=== PATIENT | male | born 1945 | race African-American/Black ===

== ENCOUNTER 2022-01-10 10:42 | Inpatient (IN) ==
[2022-01-10] MEDS ORDERED: Fluticasone Propionate Nasal 50 MCG/SPRAY BOTTLE NS PRN (15:28)
[2022-01-10] MEDS: Primidone 50 MG TABLET PO SCH (18:44)
[2022-01-10] MEDS: Propranolol LA (24 HR) 60 MG CAP.SA.24H PO SCH (18:44)
[2022-01-10] MEDS: Ascorbic Acid 500 MG TABLET PO SCH (21:02)
[2022-01-10] MEDS: Multivit/Ca/Min/Fe/FA 1 TAB TABLET PO SCH (21:02)
[2022-01-10] MEDS: CarBAMazepine XR (12 hr) 100 MG TAB PO SCH (21:02)
[2022-01-11 04:36] LABS: Basophils % 0.3 %; Eosinophils # 0.3 K/mcL (0.0-0.6); Eosinophils % 9.5 %; Hematocrit 31.7 % (37.5-50.1); Hemoglobin 10.4 g/dL (12.9-16.9); Immature Granulocytes % 0.6 % (0-4); Lymphocytes # 0.5 K/mcL (0.6-4.6); Lymphocytes % 15.3 %; Mean Corpuscular HGB Conc 32.8 g/dL (31.6-35.5); Mean Corpuscular Hemoglobin 31.1 pg (28.0-33.3); Mean Corpuscular Volume 94.9 fL (83.0-100.0); Mean Platelet Volume 10.1 fL (9.4-12.4); Monocytes # 0.4 K/mcL (0.0-1.3); Monocytes % 10.7 %; Neutrophils # 2.2 K/mcL (1.6-8.9); Platelet Count 147 K/mcL (140-400); Red Blood Count 3.34 M/mcL (4.19-5.50); Red Cell Distribution Width 14.3 % (11.5-14.5); Segmented Neutrophils % 63.6 %; White Blood Count 3.5 K/mcL (4.3-11.1)
[2022-01-11 04:50] LABS: Calcium 9.8 mg/dL (8.6-10.3); Potassium 3.5 mEq/L (3.5-5.1)
[2022-01-11] MEDS: *HR* Enoxaparin 40 MG/0.4 ML SYRINGE SQ SCH (06:54)
[2022-01-11] MEDS: CarBAMazepine XR (12 hr) 100 MG TAB PO SCH ×2 (09:32→22:08)
[2022-01-11] MEDS: Ascorbic Acid 500 MG TABLET PO SCH ×2 (09:32→22:09)
[2022-01-11] MEDS: Lisinopril-HCTZ 20-12.5mg TABLET PO SCH (09:32)
[2022-01-11] MEDS: *HR* SitaGLIPtin 100 MG TABLET PO SCH (09:33)
[2022-01-11] MEDS: allopurinoL 100 MG TABLET PO SCH (09:33)
[2022-01-11] MEDS: Cholecalciferol (D-3) 1,000 UNIT (25MCG) TABLET PO SCH (09:33)
[2022-01-11] MEDS: Cyanocobalamin (B-12) 1,000 MCG TABLET PO SCH (09:33)
[2022-01-11] MEDS: Aspirin Enteric Coated 81 MG Tablet PO SCH (09:33)
[2022-01-11] MEDS: Multivit/Ca/Min/Fe/FA 1 TAB TABLET PO SCH ×2 (09:35→22:09)
[2022-01-11] MEDS: Acetaminophen 325 MG TABLET PO PRN ×2 (09:43→22:08)
[2022-01-11] MEDS: Ammonium Lactate 30 APPL/225 GM BOTTLE TP SCH ×3 (09:43→22:11)
[2022-01-11] MEDS: Propranolol LA (24 HR) 60 MG CAP.SA.24H PO SCH (16:14)
[2022-01-11] MEDS: Primidone 50 MG TABLET PO SCH (16:14)
[2022-01-12] MEDS: *HR* Enoxaparin 40 MG/0.4 ML SYRINGE SQ SCH (05:21)
[2022-01-12 06:01] LABS: Hematocrit 32.3 % (37.5-50.1); Hemoglobin 10.7 g/dL (12.9-16.9); Mean Corpuscular HGB Conc 33.1 g/dL (31.6-35.5); Mean Corpuscular Hemoglobin 31.4 pg (28.0-33.3); Mean Corpuscular Volume 94.7 fL (83.0-100.0); Mean Platelet Volume 9.9 fL (9.4-12.4); Platelet Count 154 K/mcL (140-400); Red Blood Count 3.41 M/mcL (4.19-5.50); Red Cell Distribution Width 14.4 % (11.5-14.5); White Blood Count 4.4 K/mcL (4.3-11.1)
[2022-01-12 06:19] LABS: Albumin 3.5 g/dL (3.5-5.7); Albumin/Globulin Ratio 1.2 (1.1-2.2); Bilirubin,Total 0.3 mg/dL (0.3-1.0); Calcium 9.5 mg/dL (8.6-10.3); Magnesium 1.7 mg/dL (1.6-2.6); Potassium 3.6 mEq/L (3.5-5.1); Total Protein 6.5 g/dL (6.4-8.9)
[2022-01-12] MEDS: Acetaminophen 325 MG TABLET PO PRN ×2 (06:49→20:29)
[2022-01-12] MEDS: Ammonium Lactate 30 APPL/225 GM BOTTLE TP SCH ×3 (08:17→20:32)
[2022-01-12] MEDS: Aspirin Enteric Coated 81 MG Tablet PO SCH (08:22)
[2022-01-12] MEDS: allopurinoL 100 MG TABLET PO SCH (08:22)
[2022-01-12] MEDS: Furosemide 40 MG TABLET PO SCH (08:22)
[2022-01-12] MEDS: *HR* SitaGLIPtin 100 MG TABLET PO SCH (08:22)
[2022-01-12] MEDS: CarBAMazepine XR (12 hr) 100 MG TAB PO SCH ×2 (08:22→20:30)
[2022-01-12] MEDS: Cyanocobalamin (B-12) 1,000 MCG TABLET PO SCH (08:22)
[2022-01-12] MEDS: Multivit/Ca/Min/Fe/FA 1 TAB TABLET PO SCH ×2 (08:22→20:29)
[2022-01-12] MEDS: Lisinopril-HCTZ 20-12.5mg TABLET PO SCH (08:23)
[2022-01-12] MEDS: Ascorbic Acid 500 MG TABLET PO SCH ×2 (08:23→20:29)
[2022-01-12] MEDS: Cholecalciferol (D-3) 1,000 UNIT (25MCG) TABLET PO SCH (08:23)
[2022-01-12] MEDS: Semaglutide [Ozempic] 1 MG/0.75 ML Pen.Injctr SUBQ SCH (08:23)
[2022-01-12] MEDS: Propranolol LA (24 HR) 60 MG CAP.SA.24H PO SCH (16:49)
[2022-01-12] MEDS: *HR* HYDROcodone/Acet 5/325 mg TABLET PO PRN (16:49)
[2022-01-12] MEDS: Primidone 50 MG TABLET PO SCH (16:49)
[2022-01-12] MEDS ORDERED: Ondansetron ODT 4 MG TAB.RAPDIS SL PRN (18:19)
[2022-01-13] MEDS: *HR* Enoxaparin 40 MG/0.4 ML SYRINGE SQ SCH (05:35)
[2022-01-13] MEDS: CarBAMazepine XR (12 hr) 100 MG TAB PO SCH ×2 (08:17→21:16)
[2022-01-13] MEDS: Ammonium Lactate 30 APPL/225 GM BOTTLE TP SCH ×3 (08:17→21:18)
[2022-01-13] MEDS: allopurinoL 100 MG TABLET PO SCH (08:18)
[2022-01-13] MEDS: *HR* SitaGLIPtin 100 MG TABLET PO SCH (08:18)
[2022-01-13] MEDS: Cholecalciferol (D-3) 1,000 UNIT (25MCG) TABLET PO SCH (08:18)
[2022-01-13] MEDS: Cyanocobalamin (B-12) 1,000 MCG TABLET PO SCH (08:18)
[2022-01-13] MEDS: Ascorbic Acid 500 MG TABLET PO SCH ×2 (08:18→21:15)
[2022-01-13] MEDS: Multivit/Ca/Min/Fe/FA 1 TAB TABLET PO SCH ×2 (08:18→21:16)
[2022-01-13] MEDS: *HR* HYDROcodone/Acet 5/325 mg TABLET PO PRN ×2 (08:18→15:52)
[2022-01-13] MEDS: Lisinopril-HCTZ 20-12.5mg TABLET PO SCH (08:18)
[2022-01-13] MEDS: Aspirin Enteric Coated 81 MG Tablet PO SCH (08:18)
[2022-01-13] MEDS: Propranolol LA (24 HR) 60 MG CAP.SA.24H PO SCH (15:52)
[2022-01-13] MEDS: Primidone 50 MG TABLET PO SCH (15:52)
[2022-01-13] MEDS: Acetaminophen 325 MG TABLET PO PRN (21:16)
[2022-01-14] MEDS: *HR* Enoxaparin 40 MG/0.4 ML SYRINGE SQ SCH (05:14)
[2022-01-14] MEDS: Acetaminophen 325 MG TABLET PO PRN ×2 (05:14→20:22)
[2022-01-14] MEDS: Lisinopril-HCTZ 20-12.5mg TABLET PO SCH (09:27)
[2022-01-14] MEDS: *HR* HYDROcodone/Acet 5/325 mg TABLET PO PRN ×2 (09:27→16:23)
[2022-01-14] MEDS: *HR* SitaGLIPtin 100 MG TABLET PO SCH (09:27)
[2022-01-14] MEDS: CarBAMazepine XR (12 hr) 100 MG TAB PO SCH ×2 (09:27→20:22)
[2022-01-14] MEDS: Cyanocobalamin (B-12) 1,000 MCG TABLET PO SCH (09:27)
[2022-01-14] MEDS: Aspirin Enteric Coated 81 MG Tablet PO SCH (09:27)
[2022-01-14] MEDS: Ammonium Lactate 30 APPL/225 GM BOTTLE TP SCH ×3 (09:28→20:21)
[2022-01-14] MEDS: Ascorbic Acid 500 MG TABLET PO SCH ×2 (09:28→20:22)
[2022-01-14] MEDS: Multivit/Ca/Min/Fe/FA 1 TAB TABLET PO SCH ×2 (09:28→20:22)
[2022-01-14] MEDS: Cholecalciferol (D-3) 1,000 UNIT (25MCG) TABLET PO SCH (09:28)
[2022-01-14] MEDS: allopurinoL 100 MG TABLET PO SCH (09:28)
[2022-01-14] MEDS: Furosemide 40 MG TABLET PO SCH (09:28)
[2022-01-14] MEDS: Propranolol LA (24 HR) 60 MG CAP.SA.24H PO SCH (16:23)
[2022-01-14] MEDS: Primidone 50 MG TABLET PO SCH (16:23)
[2022-01-15] MEDS: *HR* Enoxaparin 40 MG/0.4 ML SYRINGE SQ SCH (04:48)
[2022-01-15 05:40] LABS: Hematocrit 32.6 % (37.5-50.1); Hemoglobin 10.8 g/dL (12.9-16.9); Mean Corpuscular HGB Conc 33.1 g/dL (31.6-35.5); Mean Corpuscular Hemoglobin 31.9 pg (28.0-33.3); Mean Corpuscular Volume 96.2 fL (83.0-100.0); Mean Platelet Volume 10.1 fL (9.4-12.4); Platelet Count 147 K/mcL (140-400); Red Blood Count 3.39 M/mcL (4.19-5.50); Red Cell Distribution Width 14.3 % (11.5-14.5); White Blood Count 4.5 K/mcL (4.3-11.1)
[2022-01-15 05:57] LABS: Magnesium 1.8 mg/dL (1.6-2.6); Potassium 4.1 mEq/L (3.5-5.1)
[2022-01-15] MEDS: Lisinopril-HCTZ 20-12.5mg TABLET PO SCH (07:50)
[2022-01-15] MEDS: CarBAMazepine XR (12 hr) 100 MG TAB PO SCH ×2 (07:50→20:01)
[2022-01-15] MEDS: Cyanocobalamin (B-12) 1,000 MCG TABLET PO SCH (07:51)
[2022-01-15] MEDS: Ascorbic Acid 500 MG TABLET PO SCH ×2 (07:51→20:01)
[2022-01-15] MEDS: Cholecalciferol (D-3) 1,000 UNIT (25MCG) TABLET PO SCH (07:51)
[2022-01-15] MEDS: *HR* HYDROcodone/Acet 5/325 mg TABLET PO PRN ×2 (07:51→18:04)
[2022-01-15] MEDS: allopurinoL 100 MG TABLET PO SCH (07:51)
[2022-01-15] MEDS: Multivit/Ca/Min/Fe/FA 1 TAB TABLET PO SCH ×2 (07:51→20:01)
[2022-01-15] MEDS: *HR* SitaGLIPtin 100 MG TABLET PO SCH (07:52)
[2022-01-15] MEDS: Aspirin Enteric Coated 81 MG Tablet PO SCH (07:52)
[2022-01-15] MEDS: Ammonium Lactate 30 APPL/225 GM BOTTLE TP SCH ×3 (09:52→20:01)
[2022-01-15] MEDS: Propranolol LA (24 HR) 60 MG CAP.SA.24H PO SCH (18:04)
[2022-01-15] MEDS: Primidone 50 MG TABLET PO SCH (18:04)
[2022-01-15] MEDS: Acetaminophen 325 MG TABLET PO PRN (20:01)
[2022-01-16] MEDS: *HR* Enoxaparin 40 MG/0.4 ML SYRINGE SQ SCH (04:42)
[2022-01-16] MEDS: *HR* SitaGLIPtin 100 MG TABLET PO SCH (09:51)
[2022-01-16] MEDS: Aspirin Enteric Coated 81 MG Tablet PO SCH (09:51)
[2022-01-16] MEDS: Cholecalciferol (D-3) 1,000 UNIT (25MCG) TABLET PO SCH (09:51)
[2022-01-16] MEDS: lisinopriL 20 MG TABLET PO SCH (09:51)
[2022-01-16] MEDS: Ascorbic Acid 500 MG TABLET PO SCH ×2 (09:51→20:41)
[2022-01-16] MEDS: *HR* HYDROcodone/Acet 5/325 mg TABLET PO PRN ×2 (09:51→20:41)
[2022-01-16] MEDS: allopurinoL 100 MG TABLET PO SCH (09:51)
[2022-01-16] MEDS: CarBAMazepine XR (12 hr) 100 MG TAB PO SCH ×2 (09:51→20:41)
[2022-01-16] MEDS: Multivit/Ca/Min/Fe/FA 1 TAB TABLET PO SCH ×2 (09:52→20:41)
[2022-01-16] MEDS: Ammonium Lactate 30 APPL/225 GM BOTTLE TP SCH ×3 (09:52→20:41)
[2022-01-16] MEDS: Cyanocobalamin (B-12) 1,000 MCG TABLET PO SCH (09:52)
[2022-01-16] MEDS ORDERED: Dextrose Gel 15 GM/37.5 ML TUBE PO PRN ×2 (12:14)
[2022-01-16] MEDS ORDERED: D5% in Water 1,000 ML IVC PRN (12:14)
[2022-01-16] MEDS ORDERED: *HR* Dextrose 50 % in Water (Syg) 50 ML SYRINGE IVP PRN (12:14)
[2022-01-16] MEDS: Propranolol LA (24 HR) 60 MG CAP.SA.24H PO SCH (18:25)
[2022-01-16] MEDS: Primidone 50 MG TABLET PO SCH (18:25)
[2022-01-16] MEDS: Insulin LISPRO 300 UNITS/3 ML VIAL SUBQ SCH ×2 (18:25→20:42)
[2022-01-17] MEDS: *HR* Enoxaparin 40 MG/0.4 ML SYRINGE SQ SCH (05:15)
[2022-01-17] MEDS: Insulin LISPRO 300 UNITS/3 ML VIAL SUBQ SCH ×4 (08:37→20:04)
[2022-01-17] MEDS: Ammonium Lactate 30 APPL/225 GM BOTTLE TP SCH ×3 (08:37→20:06)
[2022-01-17] MEDS: Multivit/Ca/Min/Fe/FA 1 TAB TABLET PO SCH ×2 (08:38→20:06)
[2022-01-17] MEDS: Aspirin Enteric Coated 81 MG Tablet PO SCH (08:38)
[2022-01-17] MEDS: allopurinoL 100 MG TABLET PO SCH (08:38)
[2022-01-17] MEDS: Ascorbic Acid 500 MG TABLET PO SCH ×2 (08:38→20:06)
[2022-01-17] MEDS: Cholecalciferol (D-3) 1,000 UNIT (25MCG) TABLET PO SCH (08:38)
[2022-01-17] MEDS: Cyanocobalamin (B-12) 1,000 MCG TABLET PO SCH (08:38)
[2022-01-17] MEDS: lisinopriL 20 MG TABLET PO SCH (08:38)
[2022-01-17] MEDS: *HR* SitaGLIPtin 100 MG TABLET PO SCH (08:38)
[2022-01-17] MEDS: CarBAMazepine XR (12 hr) 100 MG TAB PO SCH ×2 (08:38→20:05)
[2022-01-17 10:50] LABS: Estimated Average Glucose 131 mg/dl; Hemoglobin A1C 6.2 %
[2022-01-17] MEDS: Primidone 50 MG TABLET PO SCH (17:10)
[2022-01-17] MEDS: Propranolol LA (24 HR) 60 MG CAP.SA.24H PO SCH (17:10)
[2022-01-18] MEDS: *HR* Enoxaparin 40 MG/0.4 ML SYRINGE SQ SCH (05:44)
[2022-01-18 06:20] LABS: Hematocrit 32.7 % (37.5-50.1); Hemoglobin 10.6 g/dL (12.9-16.9); Mean Corpuscular HGB Conc 32.4 g/dL (31.6-35.5); Mean Corpuscular Volume 95.6 fL (83.0-100.0); Mean Platelet Volume 9.8 fL (9.4-12.4); Platelet Count 134 K/mcL (140-400); Red Blood Count 3.42 M/mcL (4.19-5.50); Red Cell Distribution Width 14.4 % (11.5-14.5); White Blood Count 3.3 K/mcL (4.3-11.1)
[2022-01-18 06:32] LABS: Calcium 9.4 mg/dL (8.6-10.3); Magnesium 1.9 mg/dL (1.6-2.6); Potassium 4.3 mEq/L (3.5-5.1)
[2022-01-18] MEDS: allopurinoL 100 MG TABLET PO SCH (07:59)
[2022-01-18] MEDS: Cyanocobalamin (B-12) 1,000 MCG TABLET PO SCH (08:00)
[2022-01-18] MEDS: Cholecalciferol (D-3) 1,000 UNIT (25MCG) TABLET PO SCH (08:00)
[2022-01-18] MEDS: Ascorbic Acid 500 MG TABLET PO SCH ×2 (08:00→20:39)
[2022-01-18] MEDS: Aspirin Enteric Coated 81 MG Tablet PO SCH (08:00)
[2022-01-18] MEDS: Multivit/Ca/Min/Fe/FA 1 TAB TABLET PO SCH ×2 (08:00→20:39)
[2022-01-18] MEDS: *HR* SitaGLIPtin 100 MG TABLET PO SCH (08:01)
[2022-01-18] MEDS: Insulin LISPRO 300 UNITS/3 ML VIAL SUBQ SCH ×4 (08:01→20:40)
[2022-01-18] MEDS: Ammonium Lactate 30 APPL/225 GM BOTTLE TP SCH ×3 (08:01→20:40)
[2022-01-18] MEDS: lisinopriL 20 MG TABLET PO SCH (08:01)
[2022-01-18] MEDS: CarBAMazepine XR (12 hr) 100 MG TAB PO SCH ×2 (08:01→20:39)
[2022-01-18] MEDS: Propranolol LA (24 HR) 60 MG CAP.SA.24H PO SCH (18:06)
[2022-01-18] MEDS: Primidone 50 MG TABLET PO SCH (18:06)
[2022-01-18] MEDS: Acetaminophen 325 MG TABLET PO PRN (20:39)
[2022-01-19] MEDS: *HR* Enoxaparin 40 MG/0.4 ML SYRINGE SQ SCH (05:30)
[2022-01-19] MEDS: Cyanocobalamin (B-12) 1,000 MCG TABLET PO SCH (08:30)
[2022-01-19] MEDS: Multivit/Ca/Min/Fe/FA 1 TAB TABLET PO SCH ×2 (08:31→19:45)
[2022-01-19] MEDS: Aspirin Enteric Coated 81 MG Tablet PO SCH (08:31)
[2022-01-19] MEDS: Semaglutide [Ozempic] 1 MG/0.75 ML Pen.Injctr SUBQ SCH (08:31)
[2022-01-19] MEDS: lisinopriL 20 MG TABLET PO SCH (08:31)
[2022-01-19] MEDS: Ascorbic Acid 500 MG TABLET PO SCH ×2 (08:31→19:45)
[2022-01-19] MEDS: CarBAMazepine XR (12 hr) 100 MG TAB PO SCH ×2 (08:31→19:45)
[2022-01-19] MEDS: Cholecalciferol (D-3) 1,000 UNIT (25MCG) TABLET PO SCH (08:31)
[2022-01-19] MEDS: *HR* SitaGLIPtin 100 MG TABLET PO SCH (08:31)
[2022-01-19] MEDS: allopurinoL 100 MG TABLET PO SCH (08:31)
[2022-01-19] MEDS: Ammonium Lactate 30 APPL/225 GM BOTTLE TP SCH ×3 (08:32→19:47)
[2022-01-19] MEDS: Insulin LISPRO 300 UNITS/3 ML VIAL SUBQ SCH ×4 (08:32→19:47)
[2022-01-19] MEDS: Propranolol LA (24 HR) 60 MG CAP.SA.24H PO SCH (17:36)
[2022-01-19] MEDS: Primidone 50 MG TABLET PO SCH (17:36)
[2022-01-19] MEDS: Acetaminophen 325 MG TABLET PO PRN (19:46)
[2022-01-20] MEDS: *HR* Enoxaparin 40 MG/0.4 ML SYRINGE SQ SCH (05:45)
[2022-01-20] MEDS: Insulin LISPRO 300 UNITS/3 ML VIAL SUBQ SCH ×4 (08:08→20:32)
[2022-01-20] MEDS: allopurinoL 100 MG TABLET PO SCH (08:09)
[2022-01-20] MEDS: Cyanocobalamin (B-12) 1,000 MCG TABLET PO SCH (08:09)
[2022-01-20] MEDS: amLODIPine 5 MG TABLET PO SCH (08:09)
[2022-01-20] MEDS: CarBAMazepine XR (12 hr) 100 MG TAB PO SCH ×2 (08:09→20:32)
[2022-01-20] MEDS: Furosemide 40 MG TABLET PO SCH (08:09)
[2022-01-20] MEDS: Aspirin Enteric Coated 81 MG Tablet PO SCH (08:09)
[2022-01-20] MEDS: Cholecalciferol (D-3) 1,000 UNIT (25MCG) TABLET PO SCH (08:09)
[2022-01-20] MEDS: Ascorbic Acid 500 MG TABLET PO SCH ×2 (08:09→20:32)
[2022-01-20] MEDS: *HR* SitaGLIPtin 100 MG TABLET PO SCH (08:09)
[2022-01-20] MEDS: Multivit/Ca/Min/Fe/FA 1 TAB TABLET PO SCH ×2 (08:09→20:32)
[2022-01-20] MEDS: Ammonium Lactate 30 APPL/225 GM BOTTLE TP SCH ×2 (08:11→20:20)
[2022-01-20] MEDS: Primidone 50 MG TABLET PO SCH (16:52)
[2022-01-20] MEDS: Propranolol LA (24 HR) 60 MG CAP.SA.24H PO SCH (16:52)
[2022-01-21 04:59] LABS: Hematocrit 32.7 % (37.5-50.1); Hemoglobin 10.8 g/dL (12.9-16.9); Mean Corpuscular Hemoglobin 31.5 pg (28.0-33.3); Mean Corpuscular Volume 95.3 fL (83.0-100.0); Mean Platelet Volume 10.1 fL (9.4-12.4); Platelet Count 143 K/mcL (140-400); Red Blood Count 3.43 M/mcL (4.19-5.50); Red Cell Distribution Width 14.5 % (11.5-14.5); White Blood Count 3.8 K/mcL (4.3-11.1)
[2022-01-21 05:10] LABS: Calcium 9.5 mg/dL (8.6-10.3); Magnesium 1.8 mg/dL (1.6-2.6); Potassium 4.3 mEq/L (3.5-5.1)
[2022-01-21] MEDS: *HR* Enoxaparin 40 MG/0.4 ML SYRINGE SQ SCH (05:37)
[2022-01-21] MEDS: Ammonium Lactate 30 APPL/225 GM BOTTLE TP SCH ×2 (07:24→20:30)
[2022-01-21] MEDS: *HR* SitaGLIPtin 100 MG TABLET PO SCH (07:31)
[2022-01-21] MEDS: Cyanocobalamin (B-12) 1,000 MCG TABLET PO SCH (07:31)
[2022-01-21] MEDS: Multivit/Ca/Min/Fe/FA 1 TAB TABLET PO SCH ×2 (07:31→20:30)
[2022-01-21] MEDS: amLODIPine 5 MG TABLET PO SCH (07:31)
[2022-01-21] MEDS: Cholecalciferol (D-3) 1,000 UNIT (25MCG) TABLET PO SCH (07:31)
[2022-01-21] MEDS: allopurinoL 100 MG TABLET PO SCH (07:31)
[2022-01-21] MEDS: Ascorbic Acid 500 MG TABLET PO SCH ×2 (07:32→20:30)
[2022-01-21] MEDS: Aspirin Enteric Coated 81 MG Tablet PO SCH (07:32)
[2022-01-21] MEDS: Insulin LISPRO 300 UNITS/3 ML VIAL SUBQ SCH ×4 (07:32→20:31)
[2022-01-21] MEDS: CarBAMazepine XR (12 hr) 100 MG TAB PO SCH ×2 (07:32→20:29)
[2022-01-21] MEDS: Primidone 50 MG TABLET PO SCH (17:34)
[2022-01-21] MEDS: Propranolol LA (24 HR) 60 MG CAP.SA.24H PO SCH (17:34)
[2022-01-22] MEDS ORDERED: *HR* Enoxaparin 40 MG/0.4 ML SYRINGE SQ SCH (06:00)
[2022-01-22 07:38] VITALS: BP 148/69; PULSE 61; RESP 16; TEMP 98.4; O2SAT 97
[2022-01-22] MEDS: allopurinoL 100 MG TABLET PO SCH (08:16)
[2022-01-22] MEDS: CarBAMazepine XR (12 hr) 100 MG TAB PO SCH (08:16)
[2022-01-22] MEDS: Insulin LISPRO 300 UNITS/3 ML VIAL SUBQ SCH (08:16)
[2022-01-22] MEDS: Cholecalciferol (D-3) 1,000 UNIT (25MCG) TABLET PO SCH (08:16)
[2022-01-22] MEDS: Ascorbic Acid 500 MG TABLET PO SCH (08:17)
[2022-01-22] MEDS: Cyanocobalamin (B-12) 1,000 MCG TABLET PO SCH (08:17)
[2022-01-22] MEDS: Ammonium Lactate 30 APPL/225 GM BOTTLE TP SCH (08:17)
[2022-01-22] MEDS: *HR* SitaGLIPtin 100 MG TABLET PO SCH (08:17)
[2022-01-22] MEDS: Furosemide 40 MG TABLET PO SCH (08:17)
[2022-01-22] MEDS: amLODIPine 5 MG TABLET PO SCH (08:17)
[2022-01-22] MEDS: Aspirin Enteric Coated 81 MG Tablet PO SCH (08:17)
[2022-01-22] MEDS: Multivit/Ca/Min/Fe/FA 1 TAB TABLET PO SCH (08:17)
== END 2022-01-22 13:18 | disposition home health service (06) | DRG 556 ==
LOC: INPGRE 17:26
PROVIDERS: ADMIT Family Medicine; ATTEND Family Medicine

== ENCOUNTER 2022-02-12 16:23 | Inpatient (IN) ==
[2022-02-12] MEDS ORDERED: Dextrose Gel 15 GM/37.5 ML TUBE PO PRN ×2 (19:04)
[2022-02-12] MEDS ORDERED: D5% in Water 1,000 ML IVC PRN (19:04)
[2022-02-12] MEDS ORDERED: *HR* Dextrose 50 % in Water (Syg) 50 ML SYRINGE IVP PRN (19:04)
[2022-02-12] MEDS: CarBAMazepine XR (12 hr) 100 MG TAB PO SCH (22:06)
[2022-02-12] MEDS: Primidone 50 MG TABLET PO SCH (22:06)
[2022-02-12] MEDS: Ascorbic Acid 500 MG TABLET PO SCH (22:06)
[2022-02-13 05:03] LABS: Basophils % 0.2 %; Eosinophils # 0.2 K/mcL (0.0-0.6); Eosinophils % 4.8 %; Hematocrit 33.5 % (37.5-50.1); Hemoglobin 11.1 g/dL (12.9-16.9); Immature Granulocytes % 0.5 % (0-4); Lymphocytes # 0.5 K/mcL (0.6-4.6); Lymphocytes % 11.9 %; Mean Corpuscular HGB Conc 33.1 g/dL (31.6-35.5); Mean Corpuscular Hemoglobin 30.8 pg (28.0-33.3); Mean Corpuscular Volume 93.1 fL (83.0-100.0); Mean Platelet Volume 9.8 fL (9.4-12.4); Monocytes # 0.4 K/mcL (0.0-1.3); Monocytes % 9.2 %; Platelet Count 136 K/mcL (140-400); Red Cell Distribution Width 14.6 % (11.5-14.5); Segmented Neutrophils % 73.4 %; White Blood Count 4.1 K/mcL (4.3-11.1)
[2022-02-13 05:34] LABS: Calcium 9.2 mg/dL (8.6-10.3); Potassium 3.3 mEq/L (3.5-5.1)
[2022-02-13] MEDS: *HR* Enoxaparin 40 MG/0.4 ML SYRINGE SQ SCH (06:13)
[2022-02-13] MEDS: Cholecalciferol (D-3) 1,000 UNIT (25MCG) TABLET PO SCH (08:31)
[2022-02-13] MEDS: CarBAMazepine XR (12 hr) 100 MG TAB PO SCH ×3 (08:31→22:10)
[2022-02-13] MEDS: Ascorbic Acid 500 MG TABLET PO SCH ×2 (08:31→22:10)
[2022-02-13] MEDS: *HR* SitaGLIPtin 100 MG TABLET PO SCH (08:32)
[2022-02-13] MEDS: allopurinoL 100 MG TABLET PO SCH (08:32)
[2022-02-13] MEDS: Multivit/Ca/Min/Fe/FA 1 TAB TABLET PO SCH (08:32)
[2022-02-13] MEDS: Primidone 50 MG TABLET PO SCH ×2 (08:33→22:10)
[2022-02-13] MEDS: Aspirin Enteric Coated 81 MG Tablet PO SCH (08:33)
[2022-02-13] MEDS: amLODIPine 5 MG TABLET PO SCH (08:33)
[2022-02-13] MEDS: Cyanocobalamin (B-12) 1,000 MCG TABLET PO SCH (08:33)
[2022-02-13] MEDS: *HR* Glimepiride 2 MG TABLET PO SCH ×2 (08:33→17:41)
[2022-02-13] MEDS: Ammonium Lactate 30 APPL/225 GM BOTTLE TP SCH ×2 (08:39→16:06)
[2022-02-13] MEDS: Fluticasone Propionate Nasal 50 MCG/SPRAY BOTTLE NS PRN ×2 (08:39→22:11)
[2022-02-13] MEDS ORDERED: Furosemide 40 MG TABLET PO SCH (09:00)
[2022-02-13] MEDS ORDERED: NON-FORMULARY MEDICATION 1 EACH EACH (Pantoprazole Sodium 40 MG Tablet.Dr) PO SCH (09:00)
[2022-02-13] MEDS: Insulin LISPRO 300 UNITS/3 ML VIAL SUBQ SCH ×3 (09:44→17:41)
[2022-02-13] MEDS: Acetaminophen 325 MG TABLET PO PRN (17:40)
[2022-02-13] MEDS: Propranolol LA (24 HR) 60 MG CAP.SA.24H PO SCH (17:40)
[2022-02-14] MEDS: Ammonium Lactate 30 APPL/225 GM BOTTLE TP SCH ×4 (00:42→21:54)
[2022-02-14 05:03] LABS: Hemoglobin 10.8 g/dL (12.9-16.9); Mean Corpuscular HGB Conc 32.7 g/dL (31.6-35.5); Mean Corpuscular Hemoglobin 30.7 pg (28.0-33.3); Mean Corpuscular Volume 93.8 fL (83.0-100.0); Mean Platelet Volume 9.8 fL (9.4-12.4); Platelet Count 148 K/mcL (140-400); Red Blood Count 3.52 M/mcL (4.19-5.50); Red Cell Distribution Width 14.9 % (11.5-14.5); White Blood Count 4.2 K/mcL (4.3-11.1)
[2022-02-14 05:24] LABS: Albumin 3.6 g/dL (3.5-5.7); Albumin/Globulin Ratio 1.2 (1.1-2.2); Bilirubin,Total 0.4 mg/dL (0.3-1.0); Calcium 9.1 mg/dL (8.6-10.3); Globulin 2.9 g/dL (2.4-3.5); Magnesium 1.9 mg/dL (1.6-2.6); Potassium 3.8 mEq/L (3.5-5.1); Total Protein 6.5 g/dL (6.4-8.9)
[2022-02-14] MEDS: *HR* Enoxaparin 40 MG/0.4 ML SYRINGE SQ SCH (08:12)
[2022-02-14] MEDS: Insulin LISPRO 300 UNITS/3 ML VIAL SUBQ SCH ×3 (08:12→17:03)
[2022-02-14] MEDS: Multivit/Ca/Min/Fe/FA 1 TAB TABLET PO SCH (08:15)
[2022-02-14] MEDS: CarBAMazepine XR (12 hr) 100 MG TAB PO SCH ×3 (08:15→21:53)
[2022-02-14] MEDS: *HR* SitaGLIPtin 100 MG TABLET PO SCH (08:16)
[2022-02-14] MEDS: amLODIPine 5 MG TABLET PO SCH (08:16)
[2022-02-14] MEDS: Primidone 50 MG TABLET PO SCH ×2 (08:16→21:53)
[2022-02-14] MEDS: Cholecalciferol (D-3) 1,000 UNIT (25MCG) TABLET PO SCH (08:16)
[2022-02-14] MEDS: allopurinoL 100 MG TABLET PO SCH (08:16)
[2022-02-14] MEDS: Aspirin Enteric Coated 81 MG Tablet PO SCH (08:16)
[2022-02-14] MEDS: Cyanocobalamin (B-12) 1,000 MCG TABLET PO SCH (08:16)
[2022-02-14] MEDS: Furosemide 40 MG TABLET PO SCH ×2 (08:16→17:04)
[2022-02-14] MEDS: Ascorbic Acid 500 MG TABLET PO SCH ×2 (08:17→21:53)
[2022-02-14] MEDS: *HR* Glimepiride 2 MG TABLET PO SCH ×2 (08:17→17:04)
[2022-02-14] MEDS: Acetaminophen 325 MG TABLET PO PRN ×3 (08:37→21:53)
[2022-02-14] MEDS: Propranolol LA (24 HR) 60 MG CAP.SA.24H PO SCH (17:04)
[2022-02-15] MEDS: *HR* Enoxaparin 40 MG/0.4 ML SYRINGE SQ SCH (06:44)
[2022-02-15] MEDS: Multivit/Ca/Min/Fe/FA 1 TAB TABLET PO SCH (09:27)
[2022-02-15] MEDS: Furosemide 40 MG TABLET PO SCH ×2 (09:27→16:01)
[2022-02-15] MEDS: Cholecalciferol (D-3) 1,000 UNIT (25MCG) TABLET PO SCH (09:27)
[2022-02-15] MEDS: CarBAMazepine XR (12 hr) 100 MG TAB PO SCH ×3 (09:27→22:23)
[2022-02-15] MEDS: Cyanocobalamin (B-12) 1,000 MCG TABLET PO SCH (09:27)
[2022-02-15] MEDS: allopurinoL 100 MG TABLET PO SCH (09:27)
[2022-02-15] MEDS: Ascorbic Acid 500 MG TABLET PO SCH ×2 (09:27→22:22)
[2022-02-15] MEDS: Ammonium Lactate 30 APPL/225 GM BOTTLE TP SCH ×3 (09:28→22:30)
[2022-02-15] MEDS: *HR* Glimepiride 2 MG TABLET PO SCH ×2 (09:28→16:01)
[2022-02-15] MEDS: *HR* SitaGLIPtin 100 MG TABLET PO SCH (09:28)
[2022-02-15] MEDS: Aspirin Enteric Coated 81 MG Tablet PO SCH (09:28)
[2022-02-15] MEDS: Primidone 50 MG TABLET PO SCH ×2 (09:28→22:22)
[2022-02-15] MEDS: amLODIPine 5 MG TABLET PO SCH (09:28)
[2022-02-15] MEDS: Insulin LISPRO 300 UNITS/3 ML VIAL SUBQ SCH ×3 (09:31→19:57)
[2022-02-15] MEDS: Propranolol LA (24 HR) 60 MG CAP.SA.24H PO SCH (20:05)
[2022-02-15] MEDS: Acetaminophen 325 MG TABLET PO PRN (22:27)
[2022-02-16] MEDS: *HR* Enoxaparin 40 MG/0.4 ML SYRINGE SQ SCH (06:24)
[2022-02-16] MEDS ORDERED: Semaglutide [Ozempic] 1 MG/0.75 ML Pen.Injctr SUBQ SCH (09:00)
[2022-02-16] MEDS: Insulin LISPRO 300 UNITS/3 ML VIAL SUBQ SCH ×3 (09:55→16:40)
[2022-02-16] MEDS: Primidone 50 MG TABLET PO SCH ×2 (10:09→22:16)
[2022-02-16] MEDS: CarBAMazepine XR (12 hr) 100 MG TAB PO SCH ×3 (10:10→22:15)
[2022-02-16] MEDS: Cholecalciferol (D-3) 1,000 UNIT (25MCG) TABLET PO SCH (10:10)
[2022-02-16] MEDS: Cyanocobalamin (B-12) 1,000 MCG TABLET PO SCH (10:11)
[2022-02-16] MEDS: amLODIPine 5 MG TABLET PO SCH (10:11)
[2022-02-16] MEDS: *HR* Glimepiride 2 MG TABLET PO SCH ×2 (10:11→17:11)
[2022-02-16] MEDS: allopurinoL 100 MG TABLET PO SCH (10:11)
[2022-02-16] MEDS: Furosemide 40 MG TABLET PO SCH ×2 (10:11→17:11)
[2022-02-16] MEDS: *HR* SitaGLIPtin 100 MG TABLET PO SCH (10:11)
[2022-02-16] MEDS: Multivit/Ca/Min/Fe/FA 1 TAB TABLET PO SCH (10:12)
[2022-02-16] MEDS: Ascorbic Acid 500 MG TABLET PO SCH ×2 (10:12→22:15)
[2022-02-16] MEDS: Aspirin Enteric Coated 81 MG Tablet PO SCH (10:14)
[2022-02-16] MEDS: Ammonium Lactate 30 APPL/225 GM BOTTLE TP SCH ×3 (10:14→22:17)
[2022-02-16] MEDS: Propranolol LA (24 HR) 60 MG CAP.SA.24H PO SCH (17:10)
[2022-02-16] MEDS: Acetaminophen 325 MG TABLET PO PRN (22:16)
[2022-02-17] MEDS: *HR* Enoxaparin 40 MG/0.4 ML SYRINGE SQ SCH (06:37)
[2022-02-17] MEDS: Multivit/Ca/Min/Fe/FA 1 TAB TABLET PO SCH (08:51)
[2022-02-17] MEDS: Ascorbic Acid 500 MG TABLET PO SCH ×2 (08:51→21:59)
[2022-02-17] MEDS: allopurinoL 100 MG TABLET PO SCH (08:51)
[2022-02-17] MEDS: Furosemide 40 MG TABLET PO SCH ×2 (08:51→15:47)
[2022-02-17] MEDS: *HR* Glimepiride 2 MG TABLET PO SCH ×2 (08:52→15:47)
[2022-02-17] MEDS: CarBAMazepine XR (12 hr) 100 MG TAB PO SCH ×3 (08:52→21:58)
[2022-02-17] MEDS: Cholecalciferol (D-3) 1,000 UNIT (25MCG) TABLET PO SCH (08:52)
[2022-02-17] MEDS: amLODIPine 5 MG TABLET PO SCH (08:53)
[2022-02-17] MEDS: Primidone 50 MG TABLET PO SCH ×2 (08:53→21:59)
[2022-02-17] MEDS: *HR* SitaGLIPtin 100 MG TABLET PO SCH (08:53)
[2022-02-17] MEDS: Aspirin Enteric Coated 81 MG Tablet PO SCH (08:53)
[2022-02-17] MEDS: Cyanocobalamin (B-12) 1,000 MCG TABLET PO SCH (08:53)
[2022-02-17] MEDS: Insulin LISPRO 300 UNITS/3 ML VIAL SUBQ SCH ×3 (08:58→16:47)
[2022-02-17] MEDS: Ammonium Lactate 30 APPL/225 GM BOTTLE TP SCH ×3 (08:59→21:59)
[2022-02-17] MEDS: Propranolol LA (24 HR) 60 MG CAP.SA.24H PO SCH (17:40)
[2022-02-17] MEDS: Acetaminophen 325 MG TABLET PO PRN (21:58)
[2022-02-18 04:55] LABS: Basophils % 0.5 %; Eosinophils # 0.4 K/mcL (0.0-0.6); Eosinophils % 9.5 %; Hematocrit 34.1 % (37.5-50.1); Hemoglobin 11.1 g/dL (12.9-16.9); Immature Granulocytes % 0.5 % (0-4); Lymphocytes # 0.8 K/mcL (0.6-4.6); Lymphocytes % 19.8 %; Mean Corpuscular HGB Conc 32.6 g/dL (31.6-35.5); Mean Corpuscular Hemoglobin 30.9 pg (28.0-33.3); Mean Platelet Volume 9.7 fL (9.4-12.4); Monocytes # 0.5 K/mcL (0.0-1.3); Monocytes % 12.4 %; Neutrophils # 2.2 K/mcL (1.6-8.9); Platelet Count 159 K/mcL (140-400); Red Blood Count 3.59 M/mcL (4.19-5.50); Red Cell Distribution Width 14.8 % (11.5-14.5); Segmented Neutrophils % 57.3 %; White Blood Count 3.8 K/mcL (4.3-11.1)
[2022-02-18 05:08] LABS: Calcium 9.4 mg/dL (8.6-10.3); Potassium 4.1 mEq/L (3.5-5.1)
[2022-02-18] MEDS: *HR* Enoxaparin 40 MG/0.4 ML SYRINGE SQ SCH (06:17)
[2022-02-18] MEDS: Insulin LISPRO 300 UNITS/3 ML VIAL SUBQ SCH (07:37)
[2022-02-18 07:39] VITALS: BP 123/70; PULSE 58; RESP 16; TEMP 97.8; O2SAT 96
[2022-02-18] MEDS: Multivit/Ca/Min/Fe/FA 1 TAB TABLET PO SCH (09:00)
[2022-02-18] MEDS: Aspirin Enteric Coated 81 MG Tablet PO SCH (09:00)
[2022-02-18] MEDS: Cyanocobalamin (B-12) 1,000 MCG TABLET PO SCH (09:00)
[2022-02-18] MEDS: Furosemide 40 MG TABLET PO SCH (09:01)
[2022-02-18] MEDS: amLODIPine 5 MG TABLET PO SCH (09:01)
[2022-02-18] MEDS: Ascorbic Acid 500 MG TABLET PO SCH (09:01)
[2022-02-18] MEDS: Primidone 50 MG TABLET PO SCH (09:01)
[2022-02-18] MEDS: *HR* SitaGLIPtin 100 MG TABLET PO SCH (09:01)
[2022-02-18] MEDS: Cholecalciferol (D-3) 1,000 UNIT (25MCG) TABLET PO SCH (09:01)
[2022-02-18] MEDS: CarBAMazepine XR (12 hr) 100 MG TAB PO SCH (09:01)
[2022-02-18] MEDS: *HR* Glimepiride 2 MG TABLET PO SCH (09:01)
[2022-02-18] MEDS: allopurinoL 100 MG TABLET PO SCH (09:02)
[2022-02-18] MEDS: Ammonium Lactate 30 APPL/225 GM BOTTLE TP SCH (09:07)
== END 2022-02-18 11:40 | disposition home health service (06) | DRG 291 ==
LOC: INPGRE 21:16
PROVIDERS: ADMIT Family Medicine; ATTEND Family Medicine